=== PATIENT | female | born 1955 | race Caucasian/White ===

== ENCOUNTER 2016-12-17 22:52 | Emergency (ER) | payer MEDICARE, OTHER ==
[~2016-12-17 22:52] MED LIST: ALENDRONATE SOD70 MG PO; ASPIRIN325 MG PO; ATENOLOL25 MG PO; CEFDINIR300 MG PO; CETIRIZINE HCL10 MG PO; COZAAR25 MG PO; CYMBALTA30 MG PO; DULCOLAX5 MG PO; FLONASE 0.05% N16 GM; FLUCONAZOLE100 MG PO; FOLIC ACID1 MG PO; FUROSEMIDE40 MG PO; GABAPENTIN400 MG PO; GABAPENTIN800 MG PO; IBUPROFEN800 MG PO; LEVOFLOXACIN750 MG PO; LEVOTHYROXINE50 MCG PO; LOSARTAN POTASS50 MG PO; LOVASTATIN40 MG PO; MEDROL4 M1 PO; MONTELUKAST SOD10 MG PO; MYSOLINE50 MG PO; NYSTATIN100000 UNI PO; NYSTOP60 GM TOP; PREDNISONE10 MG PO; PRILOSEC40 MG PO; PROMETHAZINE-D120 ML PO; QUETIAPINE FUMA50 MG PO; ROPINIROLE HCL0.5 MG PO; SINEMET 25-1001 EACH PO; SINGULAIR10 MG PO; SPIRONOLACTONE25 MG PO; VITAMIN D250000 UNIT PO; XOPENEX1.25 MG/3 NEB; ZITHROMAX250 MG PO
== END 2016-12-17 23:25 | disposition home or self-care (01) ==
LOC: ER 22:52
DX: T17.908A Unspecified foreign body in respiratory tract, part unspecified causing other injury, initial encounter (principal); Z71.1 Person with feared health complaint in whom no diagnosis is made; Z79.899 Other long term (current) drug therapy; Z79.1 Long term (current) use of non-steroidal anti-inflammatories (NSAID)
CPT/HCPCS: 71020; 99283

== ENCOUNTER 2016-12-26 20:20 | Emergency (ER) | payer MEDICARE, OTHER | END 2016-12-26 23:25 | disposition home or self-care (01) | LOC: ER 20:20 | DX: S93.401A Sprain of unspecified ligament of right ankle, initial encounter (principal); S73.101A Unspecified sprain of right hip, initial encounter; S83.91XA Sprain of unspecified site of right knee, initial encounter; S90.01XA Contusion of right ankle, initial encounter; S70.01XA Contusion of right hip, initial encounter; S80.01XA Contusion of right knee, initial encounter; W01.0XXA Fall on same level from slipping, tripping and stumbling without subsequent striking against object, initial encounter; Y92.019 Unspecified place in single-family (private) house as the place of occurrence of the external cause; Z86.73 Personal history of transient ischemic attack (TIA), and cerebral infarction without residual deficits; I50.9 Heart failure, unspecified; Z90.710 Acquired absence of both cervix and uterus; Z79.899 Other long term (current) drug therapy; Z79.1 Long term (current) use of non-steroidal anti-inflammatories (NSAID); Z88.6 Allergy status to analgesic agent; Z88.5 Allergy status to narcotic agent; Z88.8 Allergy status to other drugs, medicaments and biological substances ==

== ENCOUNTER 2017-01-06 18:07 | Emergency (ER) | payer MEDICARE, OTHER ==
[2017-01-06 22:23] LABS: PH,URINE 6.5 (5.0 - 9.0); URINE BILIRUBIN NEGATIVE (NEGATIVE); URINE BLOOD NEGATIVE (NEGATIVE); URINE GLUCOSE (UA) NORMAL (NORMAL); URINE KETONE NEGATIVE (NEGATIVE); URINE LEUKOCYTE ESTERASE TRACE (NEGATIVE); URINE NITRATE NEGATIVE (NEGATIVE); URINE PROTEIN NEGATIVE (NEGATIVE); UROBILINOGEN NORMAL mg/dL (<1.0)
[2017-01-06 22:50] LABS: URINE RBC 0-5 /[HPF] (0-2); URINE SQUAMOUS EPITHELIAL CELL 0-10 /[HPF] (NONE SEEN); URINE WBC 0-5 /[HPF] (0-5)
[2017-01-07 00:35] LABS: EOS # 0.1 10_X3_uL (0.0-0.4); EOS % 1.3 % (0.7-5.8); GRAN # 4.4 10_X3_uL (1.6-6.1); GRAN % 70.2 % (34.0-71.1); HEMATOCRIT 38.4 % (34-45); HEMOGLOBIN 12.5 g/dL (11.2-15.7); LYMPH # 1.3 10_X3_uL (1.2-3.7); LYMPH % 20.6 % (19.3-51.7); MEAN CORPUSCULAR HGB CONC 32.6 g/dL (32.0-36.0); MEAN CORPUSCULAR VOLUME 89.1 fL (79-95); MEAN PLATELET VOLUME 9.1 fl (7.5-11.5); MONO # 0.5 10_X3_uL (0.2-0.9); MONO % 7.9 % (4.7-12.5); PLATELET COUNT 260 x10_3/uL (182-369); RED BLOOD COUNT 4.31 x10_6/uL (3.9-5.2); RED CELL DISTRIBUTION WIDTH 13.6 % (11.7-14.4); WHITE BLOOD COUNT 6.3 x10_3/uL (4.0-10.0)
[2017-01-07 00:50] LABS: ALBUMIN 4.1 gm/dL (3.4-5.0); ALKALINE PHOSPHATASE 102 U/L (50-136); ALT/SGPT 30 U/L (3.5-33.9); AST/SGOT 31 U/L (7.04-26.96); BILIRUBIN,TOTAL 0.36 mg/dL (0.0-1.0); BLOOD UREA NITROGEN 13 mg/dL (7-18); CALCIUM 8.4 mg/dL (8.7-10.7); CARBON DIOXIDE 26 mmol/L (21-32); CREATININE 0.5 mg/dL (0.6-1.3); GLUCOSE,RANDOM 105 mg/dL (70-99); POTASSIUM 3.8 mmol/L (3.5-5.1); SODIUM 140 mmol/L (136-145); TOTAL PROTEIN 6.6 gm/dL (6.4-8.2)
== END 2017-01-07 02:06 | disposition home or self-care (01) ==
LOC: ER 18:07
PROVIDERS: Emergency Medicine
DX: J06.9 Acute upper respiratory infection, unspecified (principal); J02.9 Acute pharyngitis, unspecified; R11.10 Vomiting, unspecified; I50.9 Heart failure, unspecified; J44.9 Chronic obstructive pulmonary disease, unspecified; I10 Essential (primary) hypertension; Z86.73 Personal history of transient ischemic attack (TIA), and cerebral infarction without residual deficits; Z79.899 Other long term (current) drug therapy; Z79.1 Long term (current) use of non-steroidal anti-inflammatories (NSAID); Z88.6 Allergy status to analgesic agent; Z88.5 Allergy status to narcotic agent; Z88.8 Allergy status to other drugs, medicaments and biological substances; Z91.040 Latex allergy status
CPT/HCPCS: 36415; 80053; 81001; 85025; 96372; 99070; 99283; 99283-25

== ENCOUNTER 2017-02-03 00:40 | Emergency (ER) | payer MEDICARE, OTHER ==
[2017-02-03 02:01] LABS: BLOOD UREA NITROGEN 18 mg/dL (7-18); CALCIUM 9.3 mg/dL (8.7-10.7); CARBON DIOXIDE 26 mmol/L (21-32); CREATININE 0.7 mg/dL (0.6-1.3); GLUCOSE,RANDOM 100 mg/dL (70-99); POTASSIUM 3.8 mmol/L (3.5-5.1); SODIUM 143 mmol/L (136-145)
== END 2017-02-03 02:20 | disposition home or self-care (01) ==
LOC: ER 00:40
PROVIDERS: General Practice
DX: M62.838 Other muscle spasm (principal); M79.605 Pain in left leg; M79.604 Pain in right leg; Z79.899 Other long term (current) drug therapy; Z79.891 Long term (current) use of opiate analgesic
CPT/HCPCS: 36415; 80048; 83735; 99283

== ENCOUNTER 2017-02-27 20:13 | Emergency (ER) | payer MEDICARE, OTHER ==
[2017-02-27 21:59] LABS: PH,URINE 6.5 (5.0 - 9.0); URINE BACTERIA 2+ (NONE SEEN); URINE BILIRUBIN NEGATIVE (NEGATIVE); URINE BLOOD 2+ (NEGATIVE); URINE GLUCOSE (UA) NORMAL (NORMAL); URINE KETONE NEGATIVE (NEGATIVE); URINE LEUKOCYTE ESTERASE 2+ (NEGATIVE); URINE NITRATE POSITIVE (NEGATIVE); URINE PROTEIN 2+ (NEGATIVE); URINE SQUAMOUS EPITHELIAL CELL 0-10 /[HPF] (NONE SEEN); URINE WBC >15 /[HPF] (0-5)
== END 2017-02-27 22:17 | disposition home or self-care (01) ==
LOC: ER 20:13
PROVIDERS: Internal Medicine
DX: N39.0 Urinary tract infection, site not specified (principal); R30.0 Dysuria; I10 Essential (primary) hypertension; I50.9 Heart failure, unspecified; Z90.710 Acquired absence of both cervix and uterus; Z90.49 Acquired absence of other specified parts of digestive tract; Z98.890 Other specified postprocedural states; Z88.1 Allergy status to other antibiotic agents; Z88.5 Allergy status to narcotic agent
CPT/HCPCS: 81001; 99070; 99283

== ENCOUNTER 2017-03-03 19:57 | Emergency (ER) | payer MEDICARE, OTHER ==
[2017-03-03 23:09] LABS: URINE BILIRUBIN 1+ (NEGATIVE); URINE BLOOD NEGATIVE (NEGATIVE); URINE GLUCOSE (UA) NORMAL (NORMAL); URINE KETONE NEGATIVE (NEGATIVE); URINE LEUKOCYTE ESTERASE TRACE (NEGATIVE); URINE NITRATE POSITIVE (NEGATIVE); URINE PROTEIN 1+ (NEGATIVE)
[2017-03-03 23:18] LABS: BASO % 0.1 % (0.1-1.2); EOS # 0.1 10_X3_uL (0.0-0.4); EOS % 0.5 % (0.7-5.8); GRAN # 7.6 10_X3_uL (1.6-6.1); HEMATOCRIT 40.2 % (34-45); HEMOGLOBIN 13.5 g/dL (11.2-15.7); LYMPH % 18.9 % (19.3-51.7); MEAN CORPUSCULAR HEMOGLOBIN 29.3 pg (27.0-33.0); MEAN CORPUSCULAR HGB CONC 33.6 g/dL (32.0-36.0); MEAN CORPUSCULAR VOLUME 87.2 fL (79-95); MEAN PLATELET VOLUME 9.4 fl (7.5-11.5); MONO # 1.1 10_X3_uL (0.2-0.9); MONO % 10.5 % (4.7-12.5); PLATELET COUNT 306 x10_3/uL (182-369); RED BLOOD COUNT 4.61 x10_6/uL (3.9-5.2); RED CELL DISTRIBUTION WIDTH 13.6 % (11.7-14.4); WHITE BLOOD COUNT 10.8 x10_3/uL (4.0-10.0)
[2017-03-03 23:24] LABS: URINE WBC 0-5 /[HPF] (0-5)
[2017-03-03 23:46] LABS: ALBUMIN 4.4 gm/dL (3.4-5.0); BILIRUBIN,TOTAL 0.29 mg/dL (0.0-1.0); CALCIUM 9.7 mg/dL (8.7-10.7); CREATININE 2.3 mg/dL (0.6-1.3); POTASSIUM 3.8 mmol/L (3.5-5.1); TOTAL PROTEIN 7.5 gm/dL (6.4-8.2)
== END 2017-03-04 03:59 | disposition home or self-care (01) ==
LOC: ER 19:57
PROVIDERS: Emergency Medicine
DX: N39.0 Urinary tract infection, site not specified (principal); R10.9 Unspecified abdominal pain; K21.9 Gastro-esophageal reflux disease without esophagitis; I10 Essential (primary) hypertension; J44.9 Chronic obstructive pulmonary disease, unspecified; G47.00 Insomnia, unspecified; Z86.73 Personal history of transient ischemic attack (TIA), and cerebral infarction without residual deficits; E03.9 Hypothyroidism, unspecified; Z88.8 Allergy status to other drugs, medicaments and biological substances; Z88.5 Allergy status to narcotic agent; Z79.899 Other long term (current) drug therapy; Z79.1 Long term (current) use of non-steroidal anti-inflammatories (NSAID)
CPT/HCPCS: 36415; 74150; 80053; 81001; 85025; 96372; 99284; 99284-25